=== PATIENT | male | born 1985 | race African-American/Black ===

== ENCOUNTER 2024-09-12 17:32 | Emergency (ER) | payer MEDICAID ==
[~2024-09-12] VITALS: Ht 180.3 cm; Wt 84.0 kg
[2024-09-12 17:36] VITALS: TEMP 97.9
--- NOTE | 2024-09-12 17:46 | ED.PDOC ---
HPI Allergic reaction HPI Comments 39 year old male presents to the ED with a chief complaint of allergic reaction onset today (09/12/24) around 15 minutes prior to ED arrival. Patient states he accidently ate seafood, has experienced previous allergic reaction to seafood. Prior to ED arrival, patient took 2 Benadryl tabs. Patient is experiencing facial swelling, mouth, and tongue. PMHx asthma. Denies chest pain, shortness of breath, dizziness, nausea, vomiting. No other symptoms or modifying factors present at this time. Chief Complaint: Allergic Reaction Time Seen by MD: 17:35 Reviewed Notes: Medications, Allergies Allergies: Uncoded Allergies: SEAFOOD (Allergy, Unknown, 09/12/24) Information Source: Patient Mode of Arrival: Ambulatory Severity: Moderate Timing: Minutes Duration: Since onset Prehospital treatment: Treatment (benadryl) Location: Eyes, Face, Mouth Exposed to: Food Developed: Facial Swelling History of: Asthma Modyifying Factors: Diphenhydramine Past Medical History PAST MEDICAL HISTORY: Asthma Surgical History: Denies all surgeries Family History Family History: Reviewed,noncontributory to illness, No family hx of Cancer, No family hx of DM, No family hx of Heart chu, No family hx of HTN, No family hx ofKidney chu, No family hx of Liver chu, No family hx of Lung chu, No family hx of Stroke Social History Smoker: Non-Smoker Alcohol: Denies ETOH Use Drugs: Denies Drug Use Lives In: Home Physical Exam General Appearance: No Apparent Distress, Normal, Other (mild facial swelling noted with erythema) HEENT: Normal ENT Inspection, Pharynx Normal, TMs Normal Neck: Full Range of Motion, Non-Tender, Normal, Normal Inspection Respiratory: Chest Non-Tender, Lungs Clear, No Accessory Muscle Use, No Respiratory Distress, Normal Breath Sounds Cardiovascular: No Edema, No JVD, No Murmur, No Gallop, Normal Peripheral Pulses, Regular Rate/Rhythm Breast Exam: Deferred Gastrointestinal: No Organomegaly, Non Tender, No Pulsatile Mass, Normal Bowel Sounds, Soft Genitalia: Deferred Pelvic: Deferred Rectal: Deferred Extremities: No calf tenderness, Normal capillary refill, Normal inspection, Normal range of motion, Non-tender, No pedal edema Musculoskeletal : Apperance: Normal Neurologic: Alert, glass cutter II-XII nml as Tested, No Motor Deficits, Normal Affect, Normal Mood, No Sensory Deficits Cerebellar Function: Normal Reflexes: Normal Skin: Other (mild facial swelling noted with erythema) Lymphatic: No Adenopathy Was a procedure done? Was a procedure done?: No Differential diagnosis (all) Differential Diagnosis: Anaphylaxis, Angioedema, Bronchospasm, Drug Reaction X-Ray, Labs, Meds, VS Vital Signs Date Time Temp Pulse Resp B/P (MAP) Pulse Ox O2 Delivery O2 Flow Rate FiO2 09/12/24 18:14 71 18 128/81 (97) 97 09/12/24 18:11 71 18 97 Room Air* 0 21 09/12/24 17:36 Room Air 0 09/12/24 17:36 97.9 111 18 128/86 (100) 96 97.9 Current Medications Medications (Trade) Dose Ordered Sig/Ru Route Start Time Stop Time Status Last Admin Dexamethasone Sodium Phosphate (Decadron Injection) 10 mg ONCE ONCE IV 09/12/24 17:45 09/12/24 17:46 DC 09/12/24 17:47 Famotidine (Pepcid Injection) 20 mg ONCE ONCE IV 09/12/24 17:45 09/12/24 17:46 DC 09/12/24 17:47 X-Ray, Labs, Meds, VS Comment IMAGING: X-RAYS AND CT SCANS WERE REVIEWED AND INTERPRETED BY THIS PROVIDER, IMAGING SHOWS NO FRACTURES AND NO PATHOLOGICAL DISEASE. PENDING RADIOLOGY REVIEW. LABORATORY: LABS REVIEWED AND INTERPRETED BY THIS PROVIDER. NO SIGNIFICANT ABNORMALITIES NOTED. PATIENT HAS PRIOR MEDICAL VISITS REVIEWED. MED RECONCILIATION PERFORMED VITAL SIGNS REVIEWED Time of 1ST Reevaluation: 18:05 Reevaluation 1ST: Unchanged Patient Education/Counseling: Diagnosis, Treatment, Prognosis, Need For Follow Up (Follow up with PCP in the next 2-4 days. Return to the emergency department if symptoms return.) Family Education/Counseling: No Family Present Departure 1 Departure Time of Disposition: 18:59 Impression: Primary Impression: Allergic reaction Qualified Codes: T78.40XA - Allergy, unspecified, initial encounter Disposition: HOME / SELF CARE / HOMELESS Condition: Fair Discharged With: Self Critical Care Note Critical Care Time?: No Stability Stability form required: No I personally scribed for ANNA COLINDRES ([email or web address]) on 09/12/24 at 17:46. Electronically submitted by Celine Reynolds ([email or web address]). ANNA COLINDRES [facility] September 12, 2024 17:46
[2024-09-12] MEDS: DexAMETHasone SOD PHOS 10MG/1ML VIAL INJ IV ONE (17:47)
[2024-09-12] MEDS: FAMOTIDINE (10MG/ML) 2ML VL IV ONE (17:47)
[2024-09-12 18:11] VITALS: PULSE 71; RESP 18; O2SAT 97
[2024-09-12 18:14] VITALS: BP 128/81; PULSE 71; RESP 18; O2SAT 97
== END 2024-09-12 19:09 | disposition home or self-care (01) ==
LOC: ER 17:39
DX: T78.49XA Other allergy, initial encounter (principal); J45.909 Unspecified asthma, uncomplicated; Z91.013 Allergy to seafood; X58.XXXA Exposure to other specified factors, initial encounter
CPT/HCPCS: 96374; 96375; 99284; J1100; J3490